=== PATIENT | female | born 1975 | race Two or more races ===

== ENCOUNTER 2022-03-15 12:17 | Emergency (ER) | payer BC ==
[~2022-03-15] VITALS: Ht 162.6 cm; Wt 58.2 kg
[2022-03-15 12:42] VITALS: BP 113/78
[2022-03-15] MEDS ORDERED: normal saline 1000ML IV soln IVB ONE (16:30)
[2022-03-15] MEDS ORDERED: ketorolac tromethamine 15mg/ml inj. IV ONE (16:30)
[2022-03-15] MEDS ORDERED: proCHLORperazine 10 MG/2 ml inj IV ONE (16:30)
[2022-03-15] MEDS ORDERED: diphenhydrAMINE 50 mg/ml inj IV ONE (16:30)
--- NOTE | 2022-03-15 16:55 | NUR ---
IV MEDS DONE BY ZANE LEMOS.
[2022-03-15 17:04] LABS: BASOPHILS # (AUTO) 0.1 X10'3 (0-0.2); BASOPHILS % (AUTO) 0.8 % (0-1); EOSINOPHILS % (AUTO) 0.2 % (0-6); HEMOGLOBIN 13.4 g/dl (12.0-16.0); LYMPHOCYTES # (AUTO) 1.9 X10'3 (1.1-4.8); LYMPHOCYTES % (AUTO) 19.9 % (21-51); MEAN CORPUSCULAR HEMOGLOBIN 28.9 PG (27.0-31.0); MEAN CORPUSCULAR HGB CONC 33.4 g/dL (33.0-36.5); MEAN CORPUSCULAR VOLUME 86.6 FL (78-98); MEAN PLATELET VOLUME 9.1 FL (7.4-10.4); MONOCYTES # (AUTO) 0.7 X10'3 (0-0.9); NEUTROPHILS # (AUTO) 6.9 X10'3 (1.8-7.7); NEUTROPHILS % (AUTO) 72.1 % (42-75); PLATELET COUNT 207 X10'3 (140-440); RED BLOOD COUNT 4.62 X10'6 (4.20-5.60); RED CELL DISTRIBUTION WIDTH 13.1 % (11.5-14.5); WHITE BLOOD COUNT 9.6 X10'3 (4.5-11.0)
[2022-03-15 17:18] LABS: ALANINE AMINOTRANSFERASE 16 U/L (12-78); ALBUMIN 3.7 G/DL (3.4-5.0); ALBUMIN/GLOBULIN RATIO 0.9 (1.1-1.5); ALKALINE PHOSPHATASE 49 IU/L (46-116); ANION GAP 12 (8-16); ASPARTATE AMINO TRANSFERASE 16 U/L (10-37); BILIRUBIN,TOTAL 0.6 MG/DL (0.1-1.0); BLOOD UREA NITROGEN 8 MG/DL (7-18); BUN/CREATININE RATIO 12.5 (6.6-38.0); CALCIUM 8.9 MG/DL (8.5-10.1); CHLORIDE 103 MMOL/L (99-107); CREATININE 0.64 MG/DL (0.40-0.90); GLUCOSE 99 MG/DL (70-104); POTASSIUM 3.7 MMOL/L (3.5-5.1); SODIUM 139 MMOL/L (135-145); TOTAL CARBON DIOXIDE 24.4 MMOL/L (24-32); TOTAL PROTEIN 7.7 G/DL (6.4-8.2); eGFR > 90 ML/MIN
[2022-03-15] MEDS ORDERED: LORazepam 2 mg/ml vial IV ONE (17:40)
[2022-03-15] MEDS ORDERED: acetaminophen 325mg tablet PO ONE ×2 (17:40→18:20)
== END 2022-03-15 19:19 | disposition home or self-care (01) ==
LOC: ER 12:18
DX: G43.909 Migraine, unspecified, not intractable, without status migrainosus (principal); Z20.822 Contact with and (suspected) exposure to COVID-19; Z88.1 Allergy status to other antibiotic agents
CPT/HCPCS: 36415; 80053; 85025; 87502; 87503; 87635; 96361; 96374; 96375; 99284; C9803; J0780; J1200; J1885; J2060; J7030